=== PATIENT | female | born 1955 | race Caucasian/White ===

== ENCOUNTER → 2019-12-07 | Outpatient (CLI) | payer OTHER ==
[~2019-12-07] MED LIST: ALBU90OI INH; BENA20 PO; CITA20; HYDCHL25 PO; METO50ER PO; Mucinex600 MG PO; SERT50 PO; TRIHYD253A; Zithromax250 MG PO
== END | disposition home or self-care (01) ==
LOC: LAB SHORT 07:42 → PLD 07:42
DX: C44.329 Squamous cell carcinoma of skin of other parts of face (principal); C44.629 Squamous cell carcinoma of skin of left upper limb, including shoulder
CPT/HCPCS: 88305

== ENCOUNTER → 2020-04-09 | Outpatient (CLI) | payer OTHER | END | disposition home or self-care (01) | LOC: LAB SHORT 14:13 → PLD 14:13 | DX: L57.0 Actinic keratosis (principal) | CPT/HCPCS: 88305 ==

== ENCOUNTER 2025-10-12 15:01 | Emergency (ER) | payer OTHER ==
[~2025-10-12] VITALS: Ht 157.5 cm; Wt 58.5 kg
[2025-10-12] MEDS ORDERED: Ketorolac Tromethamine 15mg Vial IM ONE (15:55)
[2025-10-12 16:50] VITALS: BP 153/84
== END 2025-10-12 16:53 | disposition home or self-care (01) ==
LOC: ER 15:01
DX: M25.561 Pain in right knee (principal); I10 Essential (primary) hypertension; Z88.5 Allergy status to narcotic agent; Z79.899 Other long term (current) drug therapy
CPT/HCPCS: 73562-RT; 96372; 99283-25; J1885

== ENCOUNTER → 2025-10-16 | Outpatient (CLI) | payer OTHER | LOC: LAB 11:45 → LAB SHORT 11:45 | DX: M25.561 Pain in right knee (principal) | CPT/HCPCS: 84550 ==